=== PATIENT | male | born 1970 | race Hispanic/Latino ===

== ENCOUNTER 2016-07-31 09:43 | Outpatient (CLI) | payer OTHER ==
--- NOTE | 2016-08-01 08:32 | Magnetic Resonance Report ---
MR CERVICAL SPINE WITHOUT CONTRAST HISTORY: Chronic neck pain. TECHNIQUE: Axial T2. Sagittal T1, T2 and STIR. FINDINGS: There is straightening of the normal lordosis. Normal height and alignment of the cervical vertebral bodies otherwise. Normal bone marrow signal. There is mild diffuse disc desiccation and narrowing. Minimal osteoarthritic changes in the facet joints. No hypertrophic changes. The cervical spinal cord is normal size and signal intensity. No abnormal intramedullary signal is detected. No high-grade central canal stenosis. C2-3: No significant abnormality. C3-4: Minor bilateral uncovertebral spurring is identified. C4-5: A mild diffuse posterior bulging disc lateralizes to the right side. There is mild left uncovertebral spurring and severe right uncovertebral spurring. There is suggestion of a small disc protrusion which projects into the right neural foramen resulting in high-grade right neural foraminal narrowing estimated at 75% or greater. There is borderline central canal narrowing measuring 9.5 mm in AP dimension. C5-6: Mild posterior and bilateral uncovertebral spurring is identified. Bilateral neural foraminal narrowing is estimated 25%. C6-7: Mild posterior and bilateral uncovertebral spurring is identified. Bilateral neural foraminal narrowing is estimated 25%. C7-T1: No significant abnormality. Impression: Straightening of the normal lordosis which could be positional or related to muscular spasm. Mild to moderate multilevel degenerative disc disease and minimal facet arthropathy. C4-5 appears to be the most affected level as outlined above. No evidence for fracture, bone lesion or malalignment.
--- NOTE | 2016-08-01 08:52 | Magnetic Resonance Report ---
MRI LUMBAR SPINE WITHOUT CONTRAST HISTORY: Chronic back pain. TECHNIQUE: axial T1, T2. sagittal T1,T2, STIR. COMPARISON: none. FINDINGS: The conus terminates at L1-2. No signal abnormality or mass. The cauda equina is within normal limits. Straightening of the normal lumbar lordosis is demonstrated. This could be secondary to muscular spasm or positioning of the patient. There is normal height and alignment of the lumbar vertebra otherwise. The bone marrow signal is within normal limits. There is moderate disc desiccation and narrowing at L2-3, L4-5 and L5-S1. Mild diffuse arthritic changes are noted in the facet joints. L1-2: No significant abnormality. L2-3: Mild disc desiccation and narrowing is noted. A mild diffuse posterior bulging disc is identified. A focal midline annular tear without significant protrusion is also identified. Mild central canal narrowing is evident measuring 8.7 mm in AP dimension. No neural foraminal narrowing. L3-4: No significant abnormality. L4-5: A moderate diffuse posterior bulging disc is identified. Mild to moderate facet arthropathy. Mild spinal canal narrowing measures 7.6 mm in AP dimension. Right neural foraminal narrowing is estimated at 50%. Left neural foraminal narrowing is estimated at 25%. Previous right laminectomy changes are suspected, correlate with history. L5-S1: A mild diffuse posterior bulging disc is identified and mild facet arthropathy. No central canal narrowing. Left neural foraminal narrowing is estimated at 50-75%. A right neural foraminal narrowing is estimated 25%. IMPRESSION: Straightening of the normal lordosis. Mild to moderate degenerative disc disease at L2-3, L4-5 and L5-S1 as outlined above. Mild central canal narrowing at L2-3 and L4-5 is suspected. Multilevel neural foraminal narrowing. No bone lesion, fracture or malalignment is appreciated. Previous surgical changes at L4-5 are suspected, correlate with history.
== END 2016-07-31 09:44 | disposition home or self-care (01) ==
LOC: MRI 09:43
PROVIDERS: ATTEND Student in an Organized Health Care Education/Training Program
DX: M50.321 Other cervical disc degeneration at C4-C5 level (principal); M51.36 Other intervertebral disc degeneration, lumbar region; M46.86 Other specified inflammatory spondylopathies, lumbar region; M48.06 Spinal stenosis, lumbar region; M54.12 Radiculopathy, cervical region; M54.16 Radiculopathy, lumbar region; G89.29 Other chronic pain; S40.0 Contusion of shoulder and upper arm; X58.XXXS Exposure to other specified factors, sequela
CPT/HCPCS: 72141; 72148

== ENCOUNTER 2016-10-09 22:28 | Emergency (ER) | payer SELFPAY | END 2016-10-09 22:30 | disposition left against medical advice (07) | LOC: ED 22:28 | DX: F41.9 Anxiety disorder, unspecified (principal); Z53.21 Procedure and treatment not carried out due to patient leaving prior to being seen by health care provider ==

== ENCOUNTER 2020-05-14 19:41 | Inpatient (IN) | payer OTHER ==
[2020-05-14] MEDS ORDERED: ONDANSETRON 4 MG/2 ML INJ IV ONE (21:22)
[2020-05-14] MEDS ORDERED: MORPHINE 4 MG/1 ML INJ IV ONE (21:22)
--- NOTE | 2020-05-14 21:25 | Event Note ---
ED Screening Note Date of service: 05/14/20 Time: 21:23 ED Screening Note: 50-year-old male patient with history of right inguinal hernia presents to emergency department with complaints of acutely worsening right lower abdominal/right groin pain occurring today. No preceding fall, trauma, or i njury. Patient was previously diagnosed with a right inguinal hernia but has not undergone surgical repair. He endorses 4 episodes of vomiting and several episodes of nonbloody diarrhea today. Also reports subjective fevers at home. unable to evaluate hernia in triage General: Awake, appropriately interactive. Appears uncomfortable. Neck: Supple. Full range of motion intact. Cardiovascular: Normal peripheral perfusion. Pulmonary: No respiratory distress. Patient is speaking normally without use of accessory muscles. Skin: No apparent rashes or lesions. Neurological: No facial asymmetry. Speech is clear. Follows commands. Patient is alert and oriented. Musculoskeletal: Moves all four extremities spontaneously with normal range of motion. Psych: Cooperative. Appropriate mood and affect. This initial assessment/diagnostic orders/clinical plan/treatment(s) is/are subject to change based on patients health status, clinical progression and re- assessment by fellow clinical providers in the ED. Further treatment and workup at subsequent clinical providers discretion. Patient/guardian urged not to elope from the ED as their condition may be serious if not clinically assessed and managed.
[2020-05-14 21:44] LABS: Hematocrit 43.7 % (35.5-45.6); Mean Corpuscular HGB Conc 34 % (32-34); Mean Corpuscular Volume 83 fl (84-94); Platelet Count 319 K/mm3 (140-440); Red Blood Count 5.28 M/mm3 (3.65-5.03); Red Cell Distribution Width 14.8 % (13.2-15.2)
[2020-05-14 22:04] LABS: Alanine Aminotransferase 11 units/L (7-56); Albumin 4.3 g/dL (3.9-5); BUN/Creatinine Ratio 13; Blood Urea Nitrogen 10 mg/dL (9-20); Calcium 9.2 mg/dL (8.4-10.2); Hemolysis Index 53
[2020-05-14 22:43] LABS: Band Neutrophils # (Manual) 5.7 K/mm3; Total Cells Counted 100
[2020-05-14 22:44] LABS: Giant Platelets Rare; Large Platelets Rare; Platelet Estimate Consistent w Auto; RBC Morphology Normal
[2020-05-15] MEDS ORDERED: SODIUM CHLORIDE 0.9% 1000 ML 1,000 ML IV ONE (00:02)
[2020-05-15] MEDS ORDERED: HYDROmorphone 1 MG/1 ML INJ IV ONE (00:02)
--- NOTE | 2020-05-15 00:02 | Emergency Department Report ---
ED Abdominal Pain HPI - General Chief Complaint: Abdominal Pain Stated Complaint: ABDOMINAL PAIN PUI?: No Time Seen by Provider: 05/14/20 23:56 Source: patient Mode of arrival: Stretcher Limitations: No Limitations - History of Present Illness Initial Comments: Patient is a 50-year-old male that presents emergency room with complaints of right lower abdominal pain. Patient states that his right inguinal hernia is worsening. Patient states it is on her scrotum. Patient states is not able to reduce. Patient states he is severely tender. Patient states the pain is a 10 out of 10 and stabbing. Patient states it is radiating from his inguinal crease to his testicles. Patient states his pain is a 10 out of 10. Patient states that he returned to baseline at this time. Patient states he has had nausea and vomiting since this morning. Patient is not anything down for the last 10 hours. Patient complains of fever. Patient's fever is low-grade. Patient denies cough. Patient denies chest pain shortness of breath. Patient denies recent travel. Patient denies recent international travel. Patient denies exposure to the novel coronavirus. Patient denies sick contacts. Patient denies loss of smell. Patient denies cough. Patient denies diarrhea. Patient denies coming in contact with anybody with symptoms of the novel coronavirus. MD Complaint: abdominal pain -: Sudden Location: RLQ, suprapubic Radiation: none Migration to: no migration Severity: severe Severity scale (0 -10): 10 Quality: stabbing, sharp Consistency: constant Improves With: rest Worsens With: movement Associated Symptoms: nausea, vomiting. denies: diarrhea, fever, chills, constipation, dysuria, hematemesis, hematochezia, melena, hematuria, syncope - Related Data Home Medications Medication Instructions Recorded Confirmed Last Taken No Known Home Medications [No 05/15/20 05/15/20 Unknown Reported Home Medications] Allergies Allergy/AdvReac Type Severity Reaction Status Date / Time erythromycin base Allergy Hives Verified 05/14/20 20:52 cefaclor [From Ceclor] AdvReac Hives Unverified 07/31/16 09:45 Penicillins AdvReac Hives Unverified 07/31/16 09:45 ED Review of Systems ROS: Stated complaint: ABDOMINAL PAIN Other details as noted in HPI Constitutional: denies: chills, fever Eyes: denies: eye pain, eye discharge, vision change ENT: denies: ear pain, throat pain Respiratory: denies: cough, shortness of breath, wheezing Cardiovascular: denies: chest pain, palpitations Endocrine: no symptoms reported Gastrointestinal: as per HPI, abdominal pain, nausea, vomiting. denies: diarrhea Genitourinary: denies: urgency, dysuria Musculoskeletal: denies: back pain, joint swelling, arthralgia Skin: denies: rash, lesions Neurological: denies: headache, weakness, paresthesias Psychiatric: denies: anxiety, depression Hematological/Lymphatic: denies: easy bleeding, easy bruising ED Past Medical Hx - Past Medical History Previous Medical History?: Yes Hx GERD: Yes Additional medical history: Right Inguinal Hernia - Surgical History Past Surgical History?: Yes Additional Surgical History: Back. Right Shoulder - Family History Family history: no significant - Social History Smoking Status: Never Smoker Substance Use Type: None - Medications Home Medications: Home Medications Medication Instructions Recorded Confirmed Last Taken Type No Known Home Medications [No 05/15/20 05/15/20 Unknown History Reported Home Medications] ED Physical Exam - General Limitations: No Limitations General appearance: alert, in no apparent distress - Head Head exam: Present: atraumatic, normocephalic - Eye Eye exam: Present: normal appearance - ENT ENT exam: Present: mucous membranes moist - Neck Neck exam: Present: normal inspection - Respiratory Respiratory exam: Present: normal lung sounds bilaterally. Absent: respiratory distress - Cardiovascular Cardiovascular Exam: Present: regular rate, normal rhythm. Absent: systolic murmur, diastolic murmur, rubs, gallop - GI/Abdominal GI/Abdominal exam: Present: soft, tenderness (Inguinal crease tenderness to palpation. Large inguinal hernia noted and not reducible. Hernia is severely tender.), normal bowel sounds - Rectal Rectal exam: Present: deferred - Extremities Exam Extremities exam: Present: normal inspection - Back Exam Back exam: Present: normal inspection - Neurological Exam Neurological exam: Present: alert, oriented X3 - Psychiatric Psychiatric exam: Present: normal affect, normal mood - Skin Skin exam: Present: warm, dry, intact, normal color. Absent: rash ED Course Vital Signs 05/14/20 05/14/20 05/15/20 20:43 21:01 01:24 Temperature 99.6 F 98.8 F Pulse Rate 100 H 78 94 H Respiratory 18 15 20 Rate Blood Pressure 117/78 195/93 Blood Pressure 127/71 [left arm] O2 Sat by Pulse 97 100 98 Oximetry 05/15/20 05/15/20 05/15/20 03:57 03:58 04:01 Temperature Pulse Rate 88 87 Respiratory 16 13 Rate Blood Pressure Blood Pressure 119/74 [left arm] O2 Sat by Pulse 97 98 Oximetry 05/15/20 05/15/20 04:15 04:31 Temperature Pulse Rate 85 85 Respiratory 17 18 Rate Blood Pressure 119/74 119/74 Blood Pressure [left arm] O2 Sat by Pulse 99 97 Oximetry - Reevaluation(s) Reevaluation #1: I discussed all results with patient. I discussed plan of care with patient. Patient agrees with plan of care and admission. Patient to be admitted to the hospitalist service. 05/15/20 03:26 - Consultations Consultation #1: I discussed the case with Dr. Nuñez, general surgery. Dr. Harkins states she is to look at the CT scan decide whether or not take the patient to the operating room. 05/15/20 03:25 Consultation #2: Hospitalist consulted for admission. Hospitalist to admit patient. 05/15/20 03:25 - EJ/Peripheral Line Neck R Time Out Performed: Yes Indications: nurses unable to establis Skin Cleansed in Sterile Fashion: Yes Size: 16 Dressing Placed: Tegaderm, tape Patient Tolerated Procedure: well, no complications ED Medical Decision Making - Lab Data Result diagrams: 05/14/20 21:33 05/14/20 21:33 - Radiology Data Radiology results: report reviewed, image reviewed interpreted by me: Chest x-ray: Right-sided pneumonia. No pneumothorax, no foreign body, no osseous findings, CT ABDOMEN AND PELVIS WITH CONTRAST INDICATION / CLINICAL INFORMATION: low abd + groin pain/vomiting/diarrhea; hx hernia. TECHNIQUE: Axial CT images were obtained through the abdomen and pelvis after 100 cc of Omnipaque [address] scans at this location are performed using CT dose reduction for ALARA by means of automated exposure control. COMPARISON: None available. FINDINGS: LOWER CHEST: There is airspace consolidation noted in the right middle and right lower lobe characteristic of pneumonia LIVER: No significant abnormality. GALLBLADDER: No significant abnormality. BILE DUCTS: No significant abnormality. PANCREAS: No significant abnormality. SPLEEN: No significant abnormality. ADRENALS: No significant abnormality. RIGHT KIDNEY / URETER: No significant abnormality. LEFT KIDNEY / URETER: No significant abnormality. STOMACH / SMALL BOWEL: There is a right inguinal hernia containing loops of small bowel. There is fluid noted in small bowel loops proximal ileum distal to the herniated segment of bowel without definite transition point. There is some fluid noted in the colon as well. The loops of small bowel contained within the sacrum are slightly dilated COLON: There is some fluid noted in the colon. APPENDIX: No significant abnormality. PERITONEUM: No free fluid. No free air. No fluid collection. LYMPH NODES: No significant adenopathy. AORTA / ARTERIES: No significant abnormality. IVC / VEINS: No significant abnormality. URINARY BLADDER: No significant abnormality. REPRODUCTIVE ORGANS: No significant abnormality. ADDITIONAL FINDINGS: None. SKELETAL SYSTEM: No significant abnormality. IMPRESSION: 1. There is a right inguinal hernia containing loops of small bowel. There is fluid noted in small bowel proximal and distal to the herniated segment as well as some fluid in the colon. Fluid in the bowel raises the possibility of an enteritis. There is an slight dilatation of small bowel loops within the hernia sac. It is possible that there is a component of low-grade partial small bowel obstruction as a result. 2. There is airspace consolidation in the right middle and right lower lobe characteristic of pneumonia. CHEST 1 VIEW 05/15/2020 2:36 AM INDICATION / CLINICAL INFORMATION: pna. COMPARISON: None available. FINDINGS: SUPPORT DEVICES: None. HEART / MEDIASTINUM: No significant abnormality. LUNGS / PLEURA: There is airspace consolidation in the right mid and lower lung zone characteristic of pneumonia. Left lung is clear. No pneumothorax. ADDITIONAL FINDINGS: No significant additional findings. IMPRESSION: 1. There is airspace consolidation in the right mid and lower lung zone characteristic of pneumonia. - Medical Decision Making Patient is a 50-year-old male who presents emergency with complaints of nausea and vomiting, lower abdominal pain at his inguinal crease and a nonreducible inguinal hernia. Patient states his hernia is normally reducible but it is so painful and tender he is not able to reduce it. Patient states it is going further down into his scrotum. Patient states inguinal hernias on the right side. Patient also complains of fever and nausea vomiting. Patient had labs done which were essentially markable except for an elevated WBC at 23,000. Patient had a CT scan of the abdomen which shows possible find consistent with a small bowel obstruction at the inguinal hernia site and right-sided pneumonia. Patient then had a chest x-ray which shows right-sided pneumonia. Patient given IV antibiotics early in the ER stay. Patient also given IV fluids. Patient had an NG ordered after I discussed the case with general surgery. General surgery was consulted. General surgery states they will look at the CAT scan and take the patient to the operating room. Patient admitted to the hospital service for further evaluation treatment. Covid labs were ordered and will be followed by the hospitalist service. Infectious disease consult for PUI. Critical care time documented due to the multiple reassessments, prolonged time at the bedside, interpretation of diagnostics and labs. - Differential Diagnosis Fever, nausea, abdominal pain, incarcerated hernia, small bowel obstruction Critical Care Time: Yes Critical care time in (mins) excluding proc time.: 35 Critical care attestation.: If time is entered above; I have spent that time in minutes in the direct care of this critically ill patient, excluding procedure time. Critical Care Time: 35 minutes ED Disposition Clinical Impression: Incarcerated inguinal hernia, SBO (small bowel obstruction), Person under investigation for COVID-19 Fever Qualifiers: Fever type: unspecified Qualified Code(s): R50.9 - Fever, unspecified Abdominal pain Qualifiers: Abdominal location: lower abdomen, unspecified Qualified Code(s): R10.30 - Lower abdominal pain, unspecified Pneumonia Qualifiers: Pneumonia type: due to unspecified organism Laterality: unspecified laterality Lung location: unspecified part of lung Qualified Code(s): J18.9 - Pneumonia, unspecified organism Elevated WBC count Qualifiers: Leukocytosis type: unspecified Qualified Code(s): D72.829 - Elevated white blood cell count, unspecified Nausea & vomiting Qualifiers: Vomiting type: unspecified Vomiting Intractability: non-intractable Qualified Code(s): R11.2 - Nausea with vomiting, unspecified Disposition: DC09 OP ADMIT IP TO THIS HOSP Is pt being admited?: Yes Does the pt Need Aspirin: No Condition: Critical Time of Disposition: 04:59
[2020-05-15] MEDS ORDERED: metroNIDAZOLE/NS 500 MG/100 ML 500 MG/100 ML BAG IV ONE (00:03)
--- NOTE | 2020-05-15 02:10 | Cat Scan Report ---
CT ABDOMEN AND PELVIS WITH CONTRAST INDICATION / CLINICAL INFORMATION: low abd + groin pain/vomiting/diarrhea; hx hernia. TECHNIQUE: Axial CT images were obtained through the abdomen and pelvis after 100 cc of Omnipaque [address] scans at this location are performed using CT dose reduction for ALARA by means of automated exposure control. COMPARISON: None available. FINDINGS: LOWER CHEST: There is airspace consolidation noted in the right middle and right lower lobe character istic of pneumonia LIVER: No significant abnormality. GALLBLADDER: No significant abnormality. BILE DUCTS: No significant abnormality. PANCREAS: No significant abnormality. SPLEEN: No significant abnormality. ADRENALS: No significant abnormality. RIGHT KIDNEY / URETER: No significant abnormality. LEFT KIDNEY / URETER: No significant abnormality. STOMACH / SMALL BOWEL: There is a right inguinal hernia containing loops of small bowel. There is flu id noted in small bowel loops proximal ileum distal to the herniated segment of bowel without definit e transition point. There is some fluid noted in the colon as well. The loops of small bowel containe d within the sacrum are slightly dilated COLON: There is some fluid noted in the colon. APPENDIX: No significant abnormality. PERITONEUM: No free fluid. No free air. No fluid collection. LYMPH NODES: No significant adenopathy. AORTA / ARTERIES: No significant abnormality. IVC / VEINS: No significant abnormality. URINARY BLADDER: No significant abnormality. REPRODUCTIVE ORGANS: No significant abnormality. ADDITIONAL FINDINGS: None. SKELETAL SYSTEM: No significant abnormality. IMPRESSION: 1. There is a right inguinal hernia containing loops of small bowel. There is fluid noted in small sb wel proximal and distal to the herniated segment as well as some fluid in the colon. Fluid in the bow el raises the possibility of an enteritis. There is an slight dilatation of small bowel loops within the hernia sac. It is possible that there is a component of low-grade partial small bowel obstruction as a result. 2. There is airspace consolidation in the right middle and right lower lobe characteristic of pneumon ia. Signer Name: Juvenal Thompson MD Signed: 05/15/2020 2:06 AM Workstation Name: [id number]
[2020-05-15] MEDS ORDERED: ONDANSETRON 4 MG/2 ML INJ IV PRN ×2 (03:49→09:18)
[2020-05-15] MEDS ORDERED: ACETAMINOPHEN 325 MG TAB PO PRN (03:49)
[2020-05-15] MEDS ORDERED: MORPHINE 2 MG/1 ML INJ IV PRN (03:49)
--- NOTE | 2020-05-15 04:01 | XRay Report ---
CHEST 1 VIEW 05/15/2020 2:36 AM INDICATION / CLINICAL INFORMATION: pna. COMPARISON: None available. FINDINGS: SUPPORT DEVICES: None. HEART / MEDIASTINUM: No significant abnormality. LUNGS / PLEURA: There is airspace consolidation in the right mid and lower lung zone characteristic o f pneumonia. Left lung is clear. No pneumothorax. ADDITIONAL FINDINGS: No significant additional findings. IMPRESSION: 1. There is airspace consolidation in the right mid and lower lung zone characteristic of pneumonia. Signer Name: Juvenal Thompson MD Signed: 05/15/2020 3:56 AM Workstation Name: [id number]
--- NOTE | 2020-05-15 04:06 | History and Physical Report ---
History of Present Illness Date of examination: 05/15/20 Date of admission: 05/15/20 03:26 Chief complaint: Abdominal pain History of present illness: 10-year-old -Romanian male with known history of right inguinal hernia presenting to the emergency room today complaining of sudden onset of right lower abdominal pain. Patient states that his inguinal hernias become more painful and becoming nonreducible. He has been having stabbing pain in the right inguinal region radiating towards his testicles. Pain is about 10/10 in severity. Patient has had associated nausea and vomiting. He has also has some very low- grade fever at home. He denies any chest pain or shortness of breath but states that he has had some mild cough which is nonproductive lately. Patient denies any sick contacts and no recent travel. He denies any contact with anyone with COVID-19. Work-up in the emergency room today reveals: Possible low-grade partial small bowel obstruction, there is also airspace consolidation in the right middle and right lower lobe characteristic of pneumonia. General surgeon has been consulted for evaluation by the ER physician. Patient also started on empiric IV antibiotics. Past History Past Medical History: other (Right inguinal Hernia) Past Surgical History: No surgical history Social history: no significant social history Medications and Allergies Allergies Allergy/AdvReac Type Severity Reaction Status Date / Time erythromycin base Allergy Hives Verified 05/14/20 20:52 cefaclor [From Ceclor] AdvReac Hives Unverified 07/31/16 09:45 Penicillins AdvReac Hives Unverified 07/31/16 09:45 Home Medications Medication Instructions Recorded Confirmed Last Taken Type No Known Home Medications [No 05/15/20 05/15/20 Unknown History Reported Home Medications] Active Meds: Active Medications Acetaminophen (Acetaminophen 325 Mg Tab) 650 mg PO Q4H PRN PRN Reason: Pain MILD(1-3)/Fever >100.5/CHAMPION Sodium Chloride (Nacl 0.9% 1000 Ml) 1,000 mls @ 125 mls/hr IV DIRECT ASCENCION Levofloxacin/Dextrose (Levaquin 750mg/150ml) 750 mg in 150 mls @ 100 mls/hr IV Q24H ASCENCION; Protocol Metronidazole (Flagyl 500 Mg/100 Ml) 500 mg in 100 mls @ 100 mls/hr IV Q8H ASCENCION; Protocol Morphine Sulfate (Morphine 2 Mg/1 Ml Inj) 2 mg IV Q4H PRN PRN Reason: Pain, Moderate (4-6) Ondansetron HCl (Ondansetron 4 Mg/2 Ml Inj) 4 mg IV Q8H PRN PRN Reason: Nausea And Vomiting Sodium Chloride (Sodium Chloride 0.9% 10 Ml Flush Syringe) 10 ml IV BID ASCENCION Sodium Chloride (Sodium Chloride 0.9% 10 Ml Flush Syringe) 10 ml IV PRN PRN PRN Reason: LINE FLUSH Review of Systems Constitutional: fever, chills Ears, nose, mouth and throat: no nasal congestion, no sore throat Cardiovascular: no chest pain, no palpitations Respiratory: no cough, no shortness of breath Gastrointestinal: abdominal pain, no nausea, no vomiting, no diarrhea Genitourinary Male: no dysuria, no hematuria, no nocturia Musculoskeletal: no neck pain, no low back pain Integumentary: no rash, no pruritis Neurological: no headaches, no confusion Psychiatric: no anxiety, no depression Exam - Constitutional Vitals: Temp Pulse Resp BP Pulse Ox 98.8 F 88 16 119/74 97 05/14/20 21:01 05/15/20 03:57 05/15/20 03:57 05/15/20 03:58 05/15/20 03:57 General appearance: Present: no acute distress, well-nourished - EENT Eyes: Present: PERRL, EOM intact. Absent: scleral icterus ENT: hearing intact, clear oral mucosa, dentition normal - Neck Neck: Present: supple, normal ROM - Respiratory Respiratory effort: normal Respiratory: bilateral: diminished - Cardiovascular Rhythm: regular Heart Sounds: Present: S1 & S2. Absent: gallop, systolic murmur, diastolic murmur, rub, click - Extremities Extremities: no ischemia, pulses intact, pulses symmetrical, No edema, normal temperature, normal color, Full ROM Peripheral Pulses: within normal limits - Abdominal General gastrointestinal: Present: soft, tender, non-distended, normal bowel sounds, mass, hernia (Right inguinal hernia, tender, minimal guarding.) Male genitourinary: Present: tender (Mild testicular tenderness), right inguinal hernia - Integumentary Integumentary: Present: clear, warm, dry. Absent: rash - Musculoskeletal Musculoskeletal: strength equal bilaterally - Psychiatric Psychiatric: appropriate mood/affect, intact judgment & insight, memory intact, cooperative - Neurologic Neurologic: CNII-XII intact, no focal deficits, moves all extremities Results - Labs CBC & Chem 7: 05/14/20 21:33 05/14/20 21:33 Labs: Abnormal lab results 05/14/20 05/14/20 Range/Units 21:33 21:33 WBC 22.9 H (4.5-11.0) K/mm3 RBC 5.28 H (3.65-5.03) M/mm3 MCV 83 L (84-94) fl Lymphocytes % (Manual) 7.0 L (13.4-35.0) % Seg Neutrophils # Man 14.0 H (1.8-7.7) K/mm3 Monocytes # (Manual) 1.6 H (0.0-0.8) K/mm3 Sodium 133 L (137-145) mmol/L Chloride 96.6 L (98-107) mmol/L Glucose 106 H (75-100) mg/dL Assessment and Plan - Patient Problems (1) Incarcerated inguinal hernia Current Visit: Yes Status: Acute Plan to address problem: Patient will be made n.p.o. We will place on IV analgesic medication and IV fluid. General surgeon has been consulted for evaluation. (2) Abdominal pain Current Visit: Yes Status: Acute Qualifiers: Abdominal location: lower abdomen, unspecified Qualified Code(s): R10.30 - Lower abdominal pain, unspecified Plan to address problem: Secondary to the incarcerated inguinal hernia. We will continue on IV analgesic medication. (3) Elevated WBC count Current Visit: Yes Status: Acute Qualifiers: Leukocytosis type: unspecified Qualified Code(s): D72.829 - Elevated white blood cell count, unspecified Plan to address problem: Possibly secondary to the underlying pneumonia Will monitor CBC. (4) Pneumonia Current Visit: Yes Status: Acute Qualifiers: Pneumonia type: due to unspecified organism Laterality: unspecified laterality Lung location: unspecified part of lung Qualified Code(s): J18.9 - Pneumonia, unspecified organism Plan to address problem: Patient placed on empiric IV antibiotics. We will await culture results. (5) SBO (small bowel obstruction) Current Visit: Yes Status: Acute Plan to address problem: Patient made n.p.o. Await further evaluation by general surgery. (6) DVT prophylaxis Current Visit: Yes Status: Acute Plan to address problem: Patient placed on sequential compression device. (7) Full code status Current Visit: Yes Status: Acute Plan to address problem: Patient is a full code.
[2020-05-15 04:12] LABS: Bilirubin,Urine NEG (Negative); Blood,Urine NEG (Negative); Color,Urine Yellow (Yellow); Mucus,Urine 1+ /HPF; Protein,Urine <15 mg/dL mg/dL (Negative); Urobilinogen,Urine < 2.0 mg/dL (<2.0)
--- NOTE | 2020-05-15 05:04 | XRay Report ---
ABDOMEN 1 VIEW 05/15/2020 4:37 AM INDICATION / CLINICAL INFORMATION: ngt placement. COMPARISON: None available. FINDINGS: TUBES / LINES: Nasogastric tube tip projects the level the body of the stomach. BOWEL GAS PATTERN: There is a mildly distended gas-filled loop of bowel in the midabdomen. FREE AIR / EXTRALUMINAL GAS: None. ADDITIONAL FINDINGS: Airspace consolidation is noted in the right mid and lower lung zone IMPRESSION: 1. Esophagogastric tube in expected position. Signer Name: Juvenal Thompson MD Signed: 05/15/2020 5:00 AM Workstation Name: [id number]
[2020-05-15] MEDS ORDERED: BUPIVACAINE/PF (0.25%) 2.5 MG/ML 30 ML VIAL INFILTRATI ONE (05:08)
[2020-05-15] MEDS ORDERED: LIDOCAINE (1%) 10 MG/1 ML VIAL 20 ML MDV ONE (05:08)
[2020-05-15] MEDS ORDERED: ONDANSETRON 4 MG/2 ML INJ ONE ×2 (05:09→09:13)
[2020-05-15] MEDS ORDERED: KETOROLAC 30 MG/1 ML INJ ONE (05:09)
[2020-05-15] MEDS ORDERED: ROCURONIUM 50 MG/5 ML INJ IV ONE (05:09)
[2020-05-15] MEDS ORDERED: dexAMETHasone 20 MG/5 ML VIAL ONE (05:09)
[2020-05-15] MEDS ORDERED: LIDOCAINE MPF (2%) 20 MG/1 ML VIAL 5 ML ONE (05:09)
[2020-05-15] MEDS ORDERED: HYDROmorphone 1 MG/1 ML INJ ONE (05:10)
[2020-05-15] MEDS ORDERED: propofoL 200 MG/20 ML VIAL IV ONE (05:10)
[2020-05-15] MEDS ORDERED: SUCCINYLCHOLINE CHLORIDE 200 MG/10 ML INJ MDV ONE (05:14)
--- NOTE | 2020-05-15 05:14 | Consultation ---
History of Present Illness Consult date: 05/15/20 Reason for consult: abdominal pain Chief complaint: abdominal and right inguinal pain - History of present illness History of present illness: 50 yo M with hx of IVDA, multiple shoulder surgeries who presents to ER with 1 days of sudden onset RLQ radiating into the scrotum, gradually worsening, and now severe. Patient states he has known about a right inguinal hernia for the last 1 year. It is usually soft and reducible, "but comes right back out when I stand up". He has never had pain at the site of the hernia like this before. He states he could not push the hernia back in this time due to pain. He is having n/v. He is having diarrhea. No f/c. No sick contacts. He states he has been coughing. Per discussion with ER physician, patient was premedicated with IV dilaudid and despite multiple maneuvers, the hernia could not be reduced and was extremely tender. w/u with Ct scan revealed partial SBO with small bowel in right inguinal hernia and likely source. Past History Past Medical History: GERD, other (Right inguinal Hernia) Past Surgical History: Other (multiple shoulder surgeries, back surgery, left arm surgery) Social history: alcohol abuse (1-2 beers per day), IV drug use (methamphetamine s). denies: smoking Family history: cancer (breast cancer - mother) Medications and Allergies Allergies Allergy/AdvReac Type Severity Reaction Status Date / Time erythromycin base Allergy Hives Verified 05/14/20 20:52 cefaclor [From Ceclor] AdvReac Hives Unverified 07/31/16 09:45 Penicillins AdvReac Hives Unverified 07/31/16 09:45 Home Medications Medication Instructions Recorded Confirmed Last Taken Type RX: No Known Home Medications [No 05/15/20 05/15/20 Unknown History Reported Home Medications] Active Meds: Active Medications Acetaminophen (Acetaminophen 325 Mg Tab) 650 mg PO Q4H PRN PRN Reason: Pain MILD(1-3)/Fever >100.5/CHAMPION Sodium Chloride (Nacl 0.9% 1000 Ml) 1,000 mls @ 125 mls/hr IV DIRECT ASCENCION Levofloxacin/Dextrose (Levaquin 750mg/150ml) 750 mg in 150 mls @ 100 mls/hr IV Q24HR [facility]ENCION; Protocol Metronidazole (Flagyl 500 Mg/100 Ml) 500 mg in 100 mls @ 100 mls/hr IV Q8HR [facility]ENCION; Protocol Lidocaine (Lidocaine (1%) 10 Mg/1 Ml Vial 20 Ml Mdv) Confirm Administered Dose 20 ml .ROUTE [facility] Stop: 05/15/20 05:09 Morphine Sulfate (Morphine 2 Mg/1 Ml Inj) 2 mg IV Q4H PRN PRN Reason: Pain, Moderate (4-6) Ondansetron HCl (Ondansetron 4 Mg/2 Ml Inj) 4 mg IV Q8H PRN PRN Reason: Nausea And Vomiting Sodium Chloride (Sodium Chloride 0.9% 10 Ml Flush Syringe) 10 ml IV BID [facility]ENCION Sodium Chloride (Sodium Chloride 0.9% 10 Ml Flush Syringe) 10 ml IV PRN PRN PRN Reason: LINE FLUSH Review of Systems All systems: negative (10 pt ROS performed and negative except for that listed in HPI) Exam Vital Signs Temp Pulse Resp BP Pulse Ox 99.6 F 100 H 18 117/78 97 05/14/20 20:43 05/14/20 20:43 05/14/20 20:43 05/14/20 20:43 05/14/20 20:43 Narrative exam: Gen: AAOx3. mild distress due to pain ENT: small bore NGT present CV: S1, S2+ Resp: even and unlabored Abd: soft, ND, + RLQ TTP. No r/r/g. There is a moderate sized right inguinoscrotal hernia which is partially reducible. There is tenderness during reduction. There are no skin changes. Ext: no c/c/e Results - Labs 05/14/20 21:33 05/14/20 21:33 Abnormal lab results 05/14/20 05/14/20 Range/Units 21:33 21:33 WBC 22.9 H (4.5-11.0) K/mm3 RBC 5.28 H (3.65-5.03) M/mm3 MCV 83 L (84-94) fl Lymphocytes % (Manual) 7.0 L (13.4-35.0) % Seg Neutrophils # Man 14.0 H (1.8-7.7) K/mm3 Monocytes # (Manual) 1.6 H (0.0-0.8) K/mm3 Sodium 133 L (137-145) mmol/L Chloride 96.6 L (98-107) mmol/L Glucose 106 H (75-100) mg/dL Diabetes panel 05/14/20 Range/Units 21:33 Sodium 133 L (137-145) mmol/L Potassium 3.9 (3.6-5.0) mmol/L Chloride 96.6 L (98-107) mmol/L Carbon Dioxide 24 (22-30) mmol/L BUN 10 (9-20) mg/dL Creatinine 0.8 (0.8-1.3) mg/dL Glucose 106 H (75-100) mg/dL Calcium 9.2 (8.4-10.2) mg/dL AST 16 (5-40) units/L ALT 11 (7-56) units/L Alkaline Phosphatase 75 (35-129) units/L Total Protein 6.8 (6.3-8.2) g/dL Albumin 4.3 (3.9-5) g/dL Calcium panel 05/14/20 Range/Units 21:33 Calcium 9.2 (8.4-10.2) mg/dL Albumin 4.3 (3.9-5) g/dL Pituitary panel 05/14/20 Range/Units 21:33 Sodium 133 L (137-145) mmol/L Potassium 3.9 (3.6-5.0) mmol/L Chloride 96.6 L (98-107) mmol/L Carbon Dioxide 24 (22-30) mmol/L BUN 10 (9-20) mg/dL Creatinine 0.8 (0.8-1.3) mg/dL Glucose 106 H (75-100) mg/dL Calcium 9.2 (8.4-10.2) mg/dL Adrenal panel 05/14/20 Range/Units 21:33 Sodium 133 L (137-145) mmol/L Potassium 3.9 (3.6-5.0) mmol/L Chloride 96.6 L (98-107) mmol/L Carbon Dioxide 24 (22-30) mmol/L BUN 10 (9-20) mg/dL Creatinine 0.8 (0.8-1.3) mg/dL Glucose 106 H (75-100) mg/dL Calcium 9.2 (8.4-10.2) mg/dL Total Bilirubin 0.70 (0.1-1.2) mg/dL AST 16 (5-40) units/L ALT 11 (7-56) units/L Alkaline Phosphatase 75 (35-129) units/L Total Protein 6.8 (6.3-8.2) g/dL Albumin 4.3 (3.9-5) g/dL - Imaging Abdominal x-ray: report reviewed, image reviewed CT scan - abdomen: report reviewed, image reviewed CT scan - pelvis: report reviewed, image reviewed Assessment and Plan 50 yo M with 1. incarcerated right inguinal hernia 2. SBO 2/2/ #1 3. PNA Plan: 1. NPO 2. IVF 3. NGT placed in ER - will connect to [facility] 4. IV abx per 1' team 5. prn pain and nausea control 6. DVT ppx 7. As patient has incarcerated right inguinal hernia with resultant bowel obstruction, recommend urgent right inguinal exploration, hernia repair. Discussed this with patient and all risks, benefits, alternatives to surgery discussed. Risk of hernia recurrence discussed and possible need for bowel res ection. He understands and is agreeable. Consent obtained and will proceed to OR. Thank you, please call with questions. Evaluation and treatment of this patient was during the time of the national and state emergency arising from COVID19 coronavirus pandemic. Treatment and procedures performed meet the current and available best practice and guidelines for patient during the COVID pandemic.
[2020-05-15] MEDS ORDERED: LACTATED RINGERS 1,000 ML ONE ×2 (06:23→08:55)
[2020-05-15] MEDS ORDERED: NEOSTIGMINE 10MG/10 ML INJ MDV ONE (09:13)
[2020-05-15] MEDS ORDERED: GLYCOPYRROLATE 0.4 MG/2 ML INJ ONE (09:13)
[2020-05-15] MEDS ORDERED: traMADol 50 MG TAB PO PRN (09:16)
[2020-05-15] MEDS ORDERED: HYDROmorphone 1 MG/1 ML INJ IV PRN (09:18)
--- NOTE | 2020-05-15 09:19 | Post Operative Note ---
Pre-op diagnosis: incarcerated right inguinal hernia, sbo Post-op diagnosis: same Findings: 1. indirect hernia containing redundant hernia sac extending into scrotum - containing loops of viable small bowel 2. weakness of inguinal floor Procedure: open right inguinal hernia repair with mesh Anesthesia: JACKA, local Surgeon: SHAKILA CRUZ Estimated blood loss: minimal Pathology: list (hernia sac) Specimen disposition: to lab Condition: stable Disposition: PACU
[2020-05-15] MEDS: SODIUM CHLORIDE 0.9% 1000 ML 1,000 ML IV SCH (11:13)
--- NOTE | 2020-05-15 12:00 | Event Note ---
Date: 05/15/20 Patient admitted for incarcerated right inguinal hernia, sbo 1. indirect hernia containing redundant hernia sac extending into scrotum - containing loops of viable small bowel 2. weakness of inguinal floor Had surgery this morning-inguinal hernia repair Surgical consult appreciated We will discharge patient tomorrow if agreeable with surgery
[2020-05-15] MEDS: metroNIDAZOLE/NS 500 MG/100 ML 500 MG/100 ML BAG IV SCH ×3 (14:00→21:10)
[2020-05-15] MEDS: FAMOTIDINE 20 MG TAB PO SCH (21:09)
[2020-05-15] MEDS: METOCLOPRAMIDE 10 MG/2 ML INJ IV PRN (21:09)
[2020-05-15] MEDS: oxyCODONE /ACETAMINOPHEN 5-325MG TAB PO PRN (21:09)
[2020-05-16] MEDS: oxyCODONE /ACETAMINOPHEN 5-325MG TAB PO PRN ×4 (02:59→22:40)
[2020-05-16] MEDS: metroNIDAZOLE/NS 500 MG/100 ML 500 MG/100 ML BAG IV SCH ×3 (05:07→21:42)
[2020-05-16 09:16] LABS: Basophils % (Auto) 0.4 % (0.0-1.8); Eosinophils # (Auto) 0.1 K/mm3 (0.0-0.4); Eosinophils % (Auto) 0.9 % (0.0-4.3); Hematocrit 40.6 % (35.5-45.6); Hemoglobin 13.3 gm/dl (11.8-15.2); Lymphocytes # (Auto) 1.7 K/mm3 (1.2-5.4); Lymphocytes % (Auto) 16.2 % (13.4-35.0); Mean Corpuscular HGB Conc 33 % (32-34); Mean Corpuscular Volume 84 fl (84-94); Monocytes # (Auto) 1.3 K/mm3 (0.0-0.8); Monocytes % (Auto) 12.6 % (0.0-7.3); Platelet Count 257 K/mm3 (140-440); Red Blood Count 4.85 M/mm3 (3.65-5.03); Red Cell Distribution Width 15.4 % (13.2-15.2)
[2020-05-16 09:33] LABS: INR 1.06 (0.87-1.13)
[2020-05-16] MEDS: FAMOTIDINE 20 MG TAB PO SCH ×2 (09:39→21:42)
[2020-05-16 09:41] LABS: BUN/Creatinine Ratio 10; Blood Urea Nitrogen 8 mg/dL (9-20); Calcium 8.2 mg/dL (8.4-10.2); Hemolysis Index 5
[2020-05-16] MEDS: SODIUM CHLORIDE 0.9% 1000 ML 1,000 ML IV SCH (13:42)
--- NOTE | 2020-05-16 14:16 | Event Note ---
Date: 05/16/20 50 yo M s/p open inguinal hernia repair with mesh, POD 1 Pt afebrile. Tolerating diet. Pain controlled with PO meds. Plan: 1. adv to reg diet 2. PO pain control 3. OOB/ambulate 4. IS/pulm toilet 5. abx for PNA per 1' team 6. social contact worker consult pending 7. clear for dc from surgery standpoint. DC instructions should include weight lifting restriction of 10 lbs for next 4 weeks. May shower today, pat incisions dry. May follow up in surgery clinic in 2 weeks for post op visit. D/W Dr. Fernando Thank you, please call with questions.
--- NOTE | 2020-05-16 17:09 | Consultation ---
History of Present Illness - Reason for Consult Consult date: 05/16/20 - History of Present Illness 50-year-old -Congolese male with a history of right inguinal hernia presented to the hospital complaining of right lower abdominal pain. He has known hernias have become more painful and he was unable to reduce them. He reported some low-grade fevers at home. He was taken to the OR yesterday for an open right inguinal hernia repair. It was well-tolerated. Afebrile since admission with a T-max of 99.8 with a white count of 22.9 on admission, now normal. Covid negative. Calcitonin mildly elevated at 0.2. Blood cultures no growth so far. Currently on levofloxacin. Imaging personally reviewed: Chest x-ray: Airspace consolidation in the right mid and lower lungs likely con sistent with pneumonia. CT abdomen pelvis: Right inguinal hernia containing loops of bowel fluid in the bowel with possible enteritis. Review of Systems: Bold if positive, otherwise negative General: fevers, chills, rigors HEENT: visual disturbance, diplopia, eye pain Respiratory: cough, sputum, hemoptysis, shortness of breath Cardiovascular: chest pain, syncope Gastrointestinal: nausea, vomiting, diarrhea, abdominal pain Genitourinary: dysuria, hematuria, flank pain Musculoskeletal: neck pain, back pain, joint pain, edema Neurologic: headaches, seizures Hematologic: easy bruising or bleeding Endocrine: night sweats, acute weight loss Skin: rash, jaundice, redness Psychiatric: suicidal, homicidal ideation Past History Past Medical History: GERD, other (Right inguinal Hernia) Past Surgical History: Other (multiple shoulder surgeries, back surgery, left arm surgery) Social history: alcohol abuse (1-2 beers per day), IV drug use (methamphetamines). denies: smoking Family history: cancer (breast cancer - mother) Medications and Allergies Allergies Allergy/AdvReac Type Severity Reaction Status Date / Time erythromycin base Allergy Hives Verified 05/14/20 20:52 cefaclor [From Ceclor] AdvReac Hives Unverified 07/31/16 09:45 Penicillins AdvReac Hives Unverified 07/31/16 09:45 Home Medications Medication Instructions Recorded Confirmed Last Taken Type Calcium Carbonate [Tums 500MG CHEW] 1,000 mg PO QDAY 05/15/20 05/15/20 Unknown History Active Meds: Active Medications Acetaminophen (Acetaminophen 325 Mg Tab) 650 mg PO Q4H PRN PRN Reason: Pain MILD(1-3)/Fever >100.5/CHAMPION Famotidine (Famotidine 20 Mg Tab) 20 mg PO BID [facility] Last Admin: 05/16/20 09:39 Dose: 20 mg Documented by: Hydromorphone HCl (Hydromorphone 1 Mg/1 Ml Inj) 0.5 mg IV Q10MIN PRN PRN Reason: Pain , Severe (7-10) Last Admin: 05/15/20 12:18 Dose: 0.5 mg Documented by: Sodium Chloride (Nacl 0.9% 1000 Ml) 1,000 mls @ 125 mls/hr IV DIRECT ASCENCION Last Admin: 05/16/20 13:42 Dose: 125 mls/hr Documented by: Levofloxacin/Dextrose (Levaquin 750mg/150ml) 750 mg in 150 mls @ 100 mls/hr IV Q24HR ASCENCION; Protocol Last Admin: 05/16/20 09:39 Dose: 100 mls/hr Documented by: Metronidazole (Flagyl 500 Mg/100 Ml) 500 mg in 100 mls @ 100 mls/hr IV Q8HR ASCENCION; Protocol Last Admin: 05/16/20 13:42 Dose: 100 mls/hr Documented by: Metoclopramide HCl (Metoclopramide 10 Mg/2 Ml Inj) 10 mg IV Q6H PRN PRN Reason: Nausea And Vomiting Last Admin: 05/15/20 21:09 Dose: 10 mg Documented by: Ondansetron HCl (Ondansetron 4 Mg/2 Ml Inj) 4 mg IV Q8H PRN PRN Reason: Nausea And Vomiting Ondansetron HCl (Ondansetron 4 Mg/2 Ml Inj) 4 mg IV ONCE PRN PRN Reason: Nausea And Vomiting Oxycodone/Acetaminophen (Oxycodone /Acetaminophen 5-325mg Tab) 1 tab PO Q6H PRN PRN Reason: Pain, Moderate (4-6) Last Admin: 05/16/20 09:38 Dose: 1 tab Documented by: Sodium Chloride (Sodium Chloride 0.9% 10 Ml Flush Syringe) 10 ml IV BID [facility] Last Admin: 05/16/20 09:39 Dose: Not Given Documented by: Sodium Chloride (Sodium Chloride 0.9% 10 Ml Flush Syringe) 10 ml IV PRN PRN PRN Reason: LINE FLUSH Tramadol HCl (Tramadol 50 Mg Tab) 50 mg PO Q6H PRN PRN Reason: Pain, Moderate (4-6) Last Admin: 05/15/20 17:04 Dose: 50 mg Documented by: Physical Examination - Physical Exam Narrative exam: Physical Exam: Constitutional: Alert, cooperative. No acute distress Head, Ears, Nose: Normocephalic, atraumatic. External ears, nose normal Eyes: Conjunctivae/corneas clear. No icterus. No ptosis. Neck: Supple, no meningeal signs Oral: dentition fair, no thrush Cardiovascular: S1, S2 normal. Respiratory: Good air entry, clear to auscultation bilaterally GI: Mild, expected abdominal tenderness at the site of surgery. Musculoskeletal: No pedal edema, no cyanosis. Skin: No rash or abscess Hem/Lymphatic: No palpable cervical or supraclavicular nodes. No lymphangitis Psych: Mood ok. Affect normal Neurological: Awake, alert, oriented. No gross abnormality - Constitutional Vitals: Vital Signs Temp Pulse Resp BP Pulse Ox 99.8 F H 93 H 18 119/71 96 05/16/20 11:23 05/16/20 11:23 05/16/20 11:23 05/16/20 11:23 05/16/20 11:23 Temperature -Last 24 Hours Temperature 99.8 F Temperature 97.7 F Temperature 97.6 F Temperature 99.3 F Results - Labs CBC & Chem 7: 05/16/20 07:34 05/16/20 07:34 Labs: Abnormal lab results 05/15/20 05/15/20 05/16/20 Range/Units 17:47 17:47 07:34 MCH 27 L (28-32) pg RDW 15.4 H (13.2-15.2) % Centre % (Auto) 12.6 H (0.0-7.3) % Centre # (Auto) 1.3 H (0.0-0.8) K/mm3 D-Dimer 576.93 H (0-234) ng/mlDDU Sodium (137-145) mmol/L Potassium (3.6-5.0) mmol/L BUN (9-20) mg/dL Glucose (75-100) mg/dL Calcium (8.4-10.2) mg/dL C-Reactive Protein 16.00 H (0.00-1.30) mg/dL 05/16/20 Range/Units 07:34 MCH (28-32) pg RDW (13.2-15.2) % Centre % (Auto) (0.0-7.3) % Centre # (Auto) (0.0-0.8) K/mm3 D-Dimer (0-234) ng/mlDDU Sodium 135 L (137-145) mmol/L Potassium 3.4 L (3.6-5.0) mmol/L BUN 8 L (9-20) mg/dL Glucose 72 L (75-100) mg/dL Calcium 8.2 L (8.4-10.2) mg/dL C-Reactive Protein (0.00-1.30) mg/dL Assessment and Plan Cultures: Blood culture 05/15/2020 no growth so far Covid negative A/P: 50-year-old man past medical history known inguinal hernia presenting with the same. #Covid PUI: Right-sided pneumonia, PCR negative. Findings not consistent with Covid pneumonia. As such no need for retest at present time. #Right-sided pneumonia: Okay to continue levofloxacin, will complete 5 days. White count has resolved. #Right-sided inguinal hernia: Status post reduction, possible enteritis. Recs: -Complete 5 days of levofloxacin 750 mg every 24 hours. -No need for Covid retest -Okay for discharge from infectious disease perspective. Thank you for the consult, we will sign off. Please call with any questions. Eduardo Hammond MD [facility] ([facility] O: [phone] F: [phone]
[2020-05-16] MEDS: METOCLOPRAMIDE 10 MG/2 ML INJ IV PRN (21:43)
[2020-05-17] MEDS: SODIUM CHLORIDE 0.9% 1000 ML 1,000 ML IV SCH ×3 (01:21→21:16)
[2020-05-17] MEDS: metroNIDAZOLE/NS 500 MG/100 ML 500 MG/100 ML BAG IV SCH ×3 (05:28→21:15)
[2020-05-17] MEDS: oxyCODONE /ACETAMINOPHEN 5-325MG TAB PO PRN ×3 (05:28→21:14)
--- NOTE | 2020-05-17 07:15 | Progress Note ---
Assessment and Plan - Patient Problems (1) Incarcerated inguinal hernia Current Visit: Yes Status: Acute Plan to address problem: S/p surgery and doing well (2) Homelessness Current Visit: Yes Status: Chronic Plan to address problem: Case management to look into disposition Patient willing for discharge and [place] Refuses nursing home (3) Person under investigation for COVID-19 Current Visit: Yes Status: Acute (4) RLL pneumonia Current Visit: Yes Status: Acute Plan to address problem: On Levaquin (5) Discharge planning issues Current Visit: Yes Status: Acute Plan to address problem: Patient medically cleared for discharge Placement/Ticket to [place] Subjective Date of service: 05/16/20 Interval history: 10-year-old -Iraqi male with known history of right inguinal hernia presenting to the emergency room today complaining of sudden onset of right lower abdominal pain. Patient states that his inguinal hernias become more painful and becoming nonreducible. He has been having stabbing pain in the right inguinal region radiating towards his testicles. Pain is about 10/10 in severity. Patient has had associated nausea and vomiting. He has also has some very low- grade fever at home. He denies any chest pain or shortness of breath but states that he has had some mild cough which is nonproductive lately. Patient denies any sick contacts and no recent travel. He denies any contact with anyone with COVID-19. Work-up in the emergency room today reveals: Possible low-grade partial small bowel obstruction, there is also airspace consolidation in the right middle and right lower lobe characteristic of pneumonia. General surgeon has been consulted for evaluation by the ER physician. Patient also started on empiric IV antibiotics. Objective - Constitutional Vitals: Vital Signs - 12hr 05/16/20 05/17/20 21:34 06:05 Temperature 99.3 F 99.0 F Pulse Rate 87 87 Respiratory 18 18 Rate Blood Pressure 113/72 124/81 O2 Sat by Pulse 95 96 Oximetry General appearance: Present: no acute distress, well-nourished - EENT Eyes: PERRL, EOM intact ENT: hearing intact, clear oral mucosa Ears: bilateral: normal - Neck Neck: supple, normal ROM - Respiratory Respiratory effort: normal Respiratory: bilateral: CTA - Breasts Breasts: normal - Cardiovascular Rhythm: regular Heart Sounds: Present: S1 & S2. Absent: gallop, rub Extremities: pulses intact, No edema, normal color, Full ROM - Gastrointestinal General gastrointestinal: Present: soft, non-tender, non-distended, normal bowel sounds - Genitourinary Male genitourinary: normal - Integumentary Integumentary: clear, warm, dry - Musculoskeletal Musculoskeletal: 1, strength equal bilaterally - Neurologic Neurologic: moves all extremities - Psychiatric Psychiatric: memory intact, appropriate mood/affect, intact judgment & insight - Labs CBC & Chem 7: 05/16/20 07:34 05/16/20 07:34 Labs: Abnormal lab results 05/16/20 05/16/20 Range/Units 07:34 07:34 MCH 27 L (28-32) pg RDW 15.4 H (13.2-15.2) % [place] % (Auto) 12.6 H (0.0-7.3) % [place] # (Auto) 1.3 H (0.0-0.8) K/mm3 Sodium 135 L (137-145) mmol/L Potassium 3.4 L (3.6-5.0) mmol/L BUN 8 L (9-20) mg/dL Glucose 72 L (75-100) mg/dL Calcium 8.2 L (8.4-10.2) mg/dL
[2020-05-17] MEDS: FAMOTIDINE 20 MG TAB PO SCH ×2 (09:51→21:15)
--- NOTE | 2020-05-17 10:22 | Post Anesthesia Evaluation ---
- Post Anesthesia Evaluation Patient Participated: Yes Airway Patent: Yes Stable Respiratory Function: Yes Nausea/Vomiting: No Temp > 96.8F: Yes Pain Manageable: Yes Adequeate Hydration: Yes Anesthesia Complications: No Block Receding Appropriately: Not Applicable Patient on Ventilator: No
[2020-05-18] MEDS: SODIUM CHLORIDE 0.9% 1000 ML 1,000 ML IV SCH (03:37)
[2020-05-18] MEDS: oxyCODONE /ACETAMINOPHEN 5-325MG TAB PO PRN ×3 (03:37→16:41)
[2020-05-18] MEDS: metroNIDAZOLE/NS 500 MG/100 ML 500 MG/100 ML BAG IV SCH ×2 (05:45→13:33)
--- NOTE | 2020-05-18 07:27 | Progress Note ---
Assessment and Plan - Patient Problems (1) Incarcerated inguinal hernia Current Visit: Yes Status: Acute Plan to address problem: S/p surgery and doing well (2) Homelessness Current Visit: Yes Status: Chronic Plan to address problem: Case management to look into disposition Patient willing for discharge and to live under the [facility] fire investigation manager to work on his discharge (3) Person under investigation for COVID-19 Current Visit: Yes Status: Acute Plan to address problem: Negative (4) RLL pneumonia Current Visit: Yes Status: Acute Plan to address problem: On Levaquin Can be sischarged on PO Levaquin Ready for discharge except for social issues (5) Discharge planning issues Current Visit: Yes Status: Acute Plan to address problem: Patient medically cleared for discharge Placement/Ticket to [facility] Date of service: 05/17/20 Principal diagnosis: RLL pna,Hernia repair Interval history: 10-year-old -Surinamese male with known history of right inguinal hernia presenting to the emergency room today complaining of sudden onset of right low er abdominal pain. Patient states that his inguinal hernias become more painful and becoming nonreducible. He has been having stabbing pain in the right inguinal region radiating towards his testicles. Pain is about 10/10 in severity. Patient has had associated nausea and vomiting. He has also has some very low- grade fever at home. He denies any chest pain or shortness of breath but states that he has had some mild cough which is nonproductive lately. Patient denies any sick contacts and no recent travel. He denies any contact with anyone with COVID-19. Work-up in the emergency room today reveals: Possible low-grade partial small bowel obstruction, there is also airspace consolidation in the right middle and right lower lobe characteristic of pneumonia. General surgeon has been consulted for evaluation by the ER physician. Patient also started on empiric IV antibiotics. S/p Hernia repair RLL pna Objective - Constitutional Vitals: Vital Signs - 12hr 05/17/20 05/18/20 21:07 04:07 Temperature 99.6 F 99.2 F Pulse Rate 90 Respiratory 16 16 Rate Blood Pressure 121/76 132/84 O2 Sat by Pulse 95 Oximetry General appearance: Present: no acute distress, well-nourished - EENT Eyes: PERRL, EOM intact ENT: hearing intact, clear oral mucosa Ears: bilateral: normal - Neck Neck: supple, normal ROM - Respiratory Respiratory effort: normal Respiratory: bilateral: CTA - Breasts Breasts: normal - Cardiovascular Heart rate: 78 Rhythm: regular Heart Sounds: Present: S1 & S2. Absent: gallop, rub Extremities: pulses intact, No edema, normal color, Full ROM - Gastrointestinal General gastrointestinal: Present: soft, non-tender, non-distended, normal bowel sounds - Genitourinary Male genitourinary: normal - Integumentary Integumentary: clear, warm, dry - Musculoskeletal Musculoskeletal: 1, strength equal bilaterally - Neurologic Neurologic: moves all extremities - Psychiatric Psychiatric: memory intact, appropriate mood/affect, intact judgment & insight - Labs CBC & Chem 7: 05/16/20 07:34 05/16/20 07:34
--- NOTE | 2020-05-18 09:54 | Discharge Summary ---
Providers - Providers Date of Admission: 05/15/20 03:26 Date of discharge: 05/18/20 Attending physician: SUJEY SULLIVAN 05/15/20 03:34 Consult to Physician [CONS] Routine Comment: Dr. Bey spoke with Dr. Cruz @ [phone] Consulting Provider: SHAKILA CRUZ Physician Instructions: Reason For Exam: sbo, hernia 05/15/20 04:55 Consult to Physician [CONS] Routine Comment: Consulting Provider: SARIKA YI Physician Instructions: Reason For Exam: pna. pui 05/16/20 11:21 Consult to Case Management [CONS] Routine Services Needed at Discharge: Collections Professional Notified:: n/a Additional Physician Instructions: patient homeless, IVDA [facility] Hospital[facility] Condition: Critical Hospital course: 50-year-old male with known history of right inguinal hernia presenting to the emergency room today complaining of sudden onset of right lower abdominal pain. Patient states that his inguinal hernias become more painful and becoming nonreducible. He has been having stabbing pain in the right inguinal region radiating towards his testicles. Pain is about 10/10 in severity. Patient has had associated nausea and vomiting. He has also has some very low- grade fever at home. He denies any chest pain or shortness of breath but states that he has had some mild cough which is nonproductive lately. Patient denies any sick contacts and no recent travel. He denies any contact with anyone with COVID-19. Work-up in the emergency room today reveals: Possible low-grade partial small bowel obstruction, there is also airspace consolidation in the right middle and right lower lobe characteristic of pneumonia. General surgeon has been consulted for evaluation by the ER physician. Patient also started on empiric IV antibiotics. NG tube was placed. Patient had open right inguinal hernia repair with mesh placement. After procedure, patient has been tolerating diet. ID was consulted for possible pneumonia that was seen on chest x-ray. ID recommends Levaquin for 5 days. Patient is currently homeless and mental health case manager was involved in trying to get [facility] but patient refused. He will be discharged on oral antibiotics. He will follow-up with general surgery in 2 weeks. He agrees with plan Disposition: TO HOME OR SELFCARE Final Discharge Diagnosis (Prints w/discharge instructions): Incarcerated right inguinal hernia. Pneumonia Time spent for discharge: 40 minutes - Discharge Diagnoses (1) Incarcerated inguinal hernia Status: Acute (2) Pneumonia Status: Acute Qualifiers: Pneumonia type: due to unspecified organism Laterality: unspecified laterality Lung location: unspecified part of lung Qualified Code(s): J18.9 - Pneumonia, unspecified organism Core Measure Documentation - Palliative Care Palliative Care/ Comfort Measures: Not Applicable - Core Measures Any of the following diagnoses?: none Exam - Physical Exam Narrative exam: VITAL SIGNS: Reviewed. GENERAL: Awake HEAD: No signs of head trauma. EYES: Pupils are equal. Extraocular motions intact. MOUTH: Oropharynx is normal. NECK: No adenopathy, no JVD. CHEST: Chest with diminished breath sounds bilaterally. No wheezes, rales, or rhonchi. CARDIAC: normal S1 and S2, without murmurs, gallops, or rubs. ABDOMEN: Soft, non tender and non distended. No rebound or guarding, and no masses palpated. Bowel Sounds normal. MUSCULOSKELETAL: No edema NEUROLOGIC EXAM: Alert and oriented x3. No focal neurologic deficits SKIN: No obvious lesions - Constitutional Vitals: Temp Pulse Resp BP Pulse Ox 99.2 F 90 16 132/84 95 05/18/20 04:07 05/17/20 21:07 05/18/20 04:07 05/18/20 04:07 05/17/20 21:07 Plan Additional Instructions: Take Levaquin 750mg daily for 2 days Follow up with: SHAKILA CRUZ DO [Staff Physician] - 14 Days BOLIVAR LIZ DALLAS MD [Primary Care Provider] - 3-5 Days Prescriptions: levoFLOXacin [Levaquin] 750 mg PO QDAY #2 tablet
[2020-05-18] MEDS: FAMOTIDINE 20 MG TAB PO SCH (10:07)
[2020-05-18 13:29] VITALS: BP 131/79
== END 2020-05-18 22:16 | disposition home or self-care (01) | DRG 350 ==
LOC: ED 19:41 → 3A 05-15 03:26
PROVIDERS: ADMIT Internal Medicine Geriatric Medicine; ATTEND Internal Medicine
PROC: 0YU50JZ Supplement Right Inguinal Region with Synthetic Substitute, Open Approach (ICD-10-PCS; principal; 2020-05-15)
DX: K40.30 Unilateral inguinal hernia, with obstruction, without gangrene, not specified as recurrent (principal); J18.9 Pneumonia, unspecified organism; K56.609 Unspecified intestinal obstruction, unspecified as to partial versus complete obstruction; K21.9 Gastro-esophageal reflux disease without esophagitis; D72.829 Elevated white blood cell count, unspecified; Z88.8 Allergy status to other drugs, medicaments and biological substances; Z88.0 Allergy status to penicillin; Z88.1 Allergy status to other antibiotic agents; Z80.3 Family history of malignant neoplasm of breast; Z59.0 Homelessness
CPT/HCPCS: 36415; 71045; 74018; 74177; 80048; 80053; 81001; 82140; 82728; 82947; 83615; 83735; 84145; 85007; 85025; 85027; 85379; 85610; 86140; 87040; 88302; 96365; 96375; G0378; C1781; J0330; J1100; J1170; J1885; J1956; J2405; J2704; J2710; J2765; J7030; J7120; Q9967; U0003